=== PATIENT | female | born 1985 | race Caucasian/White ===

== ENCOUNTER 2017-04-06 11:59 | Emergency (ER) | payer BC ==
[~2017-04-06] VITALS: Ht 175.2 cm; Wt 136.1 kg
[~2017-04-06 11:59] MED LIST: BACTRIM DS 8001 TA1 PO; CIPRO500 MG PO; EAC MC; FLEXERIL10 MG PO; LANTUS SOLOS100 U/M1 SC; LEVOFLOXACIN500 MG PO; METFORMIN1000 MG PO; MOTRIN800 MG PO; Motrin,Rufen800 MG PO; OTIC CARE 1%-0.10 ML OT; ROBITUSSIN AC 110 ML PO; TORADOL10 MG PO; ULTRAM50 MG PO; ZOFRAN ODT4 MG SL; ZOFRAN4 MG PO
[2017-04-06 12:34] LABS: BILIRUBIN NEGATIVE (NEGATIVE); BLOOD 3+ (NEGATIVE); CLARITY CLEAR (CLEAR); COLOR YELLOW (YELLOW); GLUCOSE 3+ (NEGATIVE); KETONE NEGATIVE (NEGATIVE); LEUKO ESTERASE NEGATIVE (NEGATIVE); NITRITE NEGATIVE (NEGATIVE); SPECIFIC GRAVITY 1.015 (1.005-1.030); UROBILINOGEN 0.2 E.U./dl (0.2-1.0)
[2017-04-06 12:42] LABS: BASO % 0.3 % (0.0-1.0); EOS % 0.3 % (1.0-4.0); HEMATOCRIT 44.3 % (37.0-47.0); HEMOGLOBIN 15.9 g/dl (12.0-16.0); LYMPH # 2.2 10*3/uL (1.3-4.4); LYMPH % 19.1 % (27.0-41.0); MEAN CORPUSCULAR HGB 32.3 pg (27.0-31.0); MEAN CORPUSCULAR HGB CONC 35.9 g/dl (33.0-37.0); MEAN PLATELET VOLUME 11.8 fl (9.6-12.3); MONO # 0.4 10*3/uL (0.1-1.0); MONO % 3.1 % (3.0-9.0); NEUT % 76.9 % (47.0-73.0); PLATELET COUNT AUTOMATED 237 10*3/uL (130-400); RED BLOOD COUNT 4.92 10*6/uL (4.10-5.10); RED CELL DISTRI WIDTH 12.1 % (0-14.5); WHITE BLOOD COUNT 11.7 10*3/uL (4.8-10.8)
[2017-04-06 12:47] LABS: YEAST TRACE
[2017-04-06 12:59] LABS: ALBUMIN 3.5 gm/dl (3.1-4.5); ALKALINE PHOSPHATASE 66 U/L (45-117); BUN 12 mg/dl (7-24); CHLORIDE 101 mmol/L (98-107); CREATININE 0.82 mg/dL (0.55-1.02); POTASSIUM 4.2 mmol/L (3.5-5.1); SGOT/AST 73 IU/L (3-35); SGPT/ALT 95 U/L (12-78); SODIUM 133 mmol/L (136-145); TOTAL PROTEIN 7.2 gm/dL (6.4-8.2)
[2017-04-06 13:01] LABS: B-hCG (QUALITATIVE) NEGATIVE (NEGATIVE)
== END 2017-04-06 19:27 | disposition home or self-care (01) ==
LOC: ED 11:59
PROVIDERS: Physician Assistant
DX: E11.9 Type 2 diabetes mellitus without complications (principal); R10.30 Lower abdominal pain, unspecified; R19.7 Diarrhea, unspecified; Z87.891 Personal history of nicotine dependence

== ENCOUNTER 2017-06-21 09:12 | Emergency (ER) | payer BC ==
[~2017-06-21] VITALS: Wt 136.1 kg
[2017-06-21] MEDS ORDERED: CYCLOBENZAPRINE10 MG PO (10:51)
[2017-06-21] MEDS ORDERED: NAPROSYN500 MG PO (10:51)
== END 2017-06-21 11:14 | disposition home or self-care (01) ==
LOC: ED 09:12
DX: S46.911A Strain of unspecified muscle, fascia and tendon at shoulder and upper arm level, right arm, initial encounter (principal); S93.402A Sprain of unspecified ligament of left ankle, initial encounter; F17.200 Nicotine dependence, unspecified, uncomplicated; X50.1XXA Overexertion from prolonged static or awkward postures, initial encounter; Y93.89 Activity, other specified; Y92.89 Other specified places as the place of occurrence of the external cause; Y99.8 Other external cause status

== ENCOUNTER 2018-02-02 21:31 | Emergency (ER) | payer BC ==
[~2018-02-02] VITALS: Ht 175.2 cm; Wt 140.6 kg
[~2018-02-02 21:31] MED LIST changes: +CYCLOBENZAPRINE10 MG PO; +NAPROSYN500 MG PO
[2018-02-02 22:35] LABS: BILIRUBIN NEGATIVE (NEGATIVE); BLOOD 1+ (NEGATIVE); CLARITY CLEAR (CLEAR); COLOR YELLOW (YELLOW); GLUCOSE 3+ (NEGATIVE); KETONE NEGATIVE (NEGATIVE); LEUKO ESTERASE NEGATIVE (NEGATIVE); NITRITE NEGATIVE (NEGATIVE); SPECIFIC GRAVITY 1.015 (1.005-1.030); UROBILINOGEN 0.2 E.U./dl (0.2-1.0)
[2018-02-02 22:46] LABS: EPITHELIAL CELLS TNTC
[2018-02-02 22:47] LABS: BACTERIA 1+
[2018-02-02] MEDS ORDERED: AMINOPHYLLIN200 MG PO (23:19)
[2018-02-02] MEDS ORDERED: PYRIDIUM200 M1 PO (23:19)
== END 2018-02-02 23:40 | disposition home or self-care (01) ==
LOC: ED 21:31
PROVIDERS: Physician Assistant
DX: N39.0 Urinary tract infection, site not specified (principal); R31.9 Hematuria, unspecified; F17.200 Nicotine dependence, unspecified, uncomplicated

== ENCOUNTER → 2019-07-11 | Outpatient (CLI) | payer BC ==
[~2019-07-11] MED LIST changes: +AMINOPHYLLIN200 MG PO; +PYRIDIUM200 M1 PO
== END | disposition home or self-care (01) ==
LOC: CARD 16:23
DX: F90.9 Attention-deficit hyperactivity disorder, unspecified type (principal)

== ENCOUNTER → 2020-08-29 | Outpatient (CLI) | payer BC | END | disposition home or self-care (01) | LOC: US 14:32 | PROVIDERS: ATTEND Obstetrics & Gynecology | DX: N92.6 Irregular menstruation, unspecified (principal) ==

== ENCOUNTER → 2021-09-16 | Outpatient (CLI) | payer BC | END | disposition home or self-care (01) | LOC: MAMMO 08:00 | PROVIDERS: ATTEND Nurse Practitioner Family | DX: R92.8 Other abnormal and inconclusive findings on diagnostic imaging of breast (principal); N64.4 Mastodynia ==

== ENCOUNTER 2022-07-01 17:34 | Emergency (ER) | payer BC ==
[~2022-07-01] VITALS: Wt 129.3 kg
[2022-07-01 18:44] LABS: BILIRUBIN Negative (Negative); BLOOD 3+ (Negative); CLARITY Clear (Clear); COLOR Yellow (Yellow); GLUCOSE 3+ (Negative); KETONE 1+ (Negative); LEUKO ESTERASE Negative (Negative); NITRITE Negative (Negative); SPECIFIC GRAVITY >= 1.030 (1.001-1.030)
[2022-07-01 19:30] LABS: RBC 21-30 rbc/hpf (0-2)
[2022-07-01] MEDS ORDERED: HYDROCODONE-AC1 EAC1 PO (19:35)
== END 2022-07-01 19:50 | disposition home or self-care (01) ==
LOC: ED 17:34
PROVIDERS: Physician Assistant
DX: A63.0 Anogenital (venereal) warts (principal); F17.200 Nicotine dependence, unspecified, uncomplicated; F10.20 Alcohol dependence, uncomplicated

== ENCOUNTER → 2022-11-13 | Outpatient (CLI) | payer BC ==
[~2022-11-13] MED LIST changes: +HYDROCODONE-AC1 EAC1 PO
[2022-11-13 10:57] LABS: BASO # 0.1 10*3/uL (0.0-0.1); BASO % 0.8 % (0.0-1.0); EOS % 0.3 % (1.0-4.0); LYMPH # 2.1 10*3/uL (1.3-4.4); LYMPH % 27.9 % (27.0-41.0); MEAN CELL VOLUME 92.8 fl (81.0-99.0); MEAN CORPUSCULAR HGB 31.2 pg (27.0-31.0); MEAN CORPUSCULAR HGB CONC 33.6 g/dl (33.0-37.0); MEAN PLATELET VOLUME 11.7 fl (9.6-12.3); MONO # 0.3 10*3/uL (0.1-1.0); MONO % 3.9 % (3.0-9.0); NEUT # 5.1 10*3/uL (2.3-7.9); PLATELET COUNT AUTOMATED 251 10*3/uL (130-400); RED BLOOD COUNT 4.74 10*6/uL (4.10-5.10); RED CELL DISTRI WIDTH 12.6 % (0-14.5); WHITE BLOOD COUNT 7.7 10*3/uL (4.8-10.8)
[2022-11-13 11:43] LABS: ALKALINE PHOSPHATASE 59 U/L (46-116); BUN 10 mg/dl (9-23); CHLORIDE 106 mmol/L (98-107); CHOLESTEROL 156 mg/dL (<200); LDL CHOLESTEROL 88 mg/dL (9-159); POTASSIUM 3.8 mmol/L (3.4-5.1); SGPT/ALT 24 U/L (10-49); THYROID STIM HORMONE (HS) 1.069 uIU/ml (0.550-4.780); TOTAL PROTEIN 7.2 gm/dL (6.0-8.0); TRIGLYCERIDES 133 mg/dl (<150)
== END | disposition home or self-care (01) ==
LOC: LAB 10:09
PROVIDERS: ATTEND Nurse Practitioner
DX: Z13.228 Encounter for screening for other metabolic disorders (principal); Z13.29 Encounter for screening for other suspected endocrine disorder; E11.9 Type 2 diabetes mellitus without complications; K04.7 Periapical abscess without sinus

== ENCOUNTER 2023-09-27 05:45 | Emergency (ER) | payer BC ==
[~2023-09-27] VITALS: Ht 175.2 cm; Wt 135.2 kg
[2023-09-27] MEDS ORDERED: Meclizine Hydrochloride 25 MG TAB PO ONE (06:00)
[2023-09-27] MEDS ORDERED: SODIUM CHLORIDE 0.9% 1,000 ML IV ONE ×2 (06:00→07:25)
[2023-09-27 06:31] LABS: BASO # 0.1 10*3/uL (0.0-0.1); BASO % 0.6 % (0.0-1.0); EOS # 0.1 10*3/uL (0.0-0.4); EOS % 0.6 % (1.0-4.0); LYMPH # 2.3 10*3/uL (1.3-4.4); LYMPH % 28.3 % (27.0-41.0); MEAN CELL VOLUME 91.1 fl (81.0-99.0); MEAN CORPUSCULAR HGB 31.2 pg (27.0-31.0); MEAN CORPUSCULAR HGB CONC 34.2 g/dl (33.0-37.0); MONO # 0.5 10*3/uL (0.1-1.0); MONO % 5.5 % (3.0-9.0); NEUT # 5.3 10*3/uL (2.3-7.9); NEUT % 64.6 % (47.0-73.0); PLATELET COUNT AUTOMATED 298 10*3/uL (130-400); RED BLOOD COUNT 4.94 10*6/uL (4.10-5.10); RED CELL DISTRI WIDTH 12.5 % (0-14.5); WHITE BLOOD COUNT 8.1 10*3/uL (4.8-10.8)
[2023-09-27 06:52] LABS: BUN 11 mg/dl (9-23); CHLORIDE 104 mmol/L (98-107); POTASSIUM 3.9 mmol/L (3.4-5.1)
[2023-09-27 06:56] LABS: ETHYL ALCOHOL < 3.0 mg/dl (<3)
[2023-09-27] MEDS ORDERED: ANTIVERT25 M2 PO (07:00)
[2023-09-27] MEDS ORDERED: AMOX-CLAV 875-1 EACH PO (07:00)
== END 2023-09-27 10:10 | disposition home or self-care (01) ==
LOC: ED 05:45
PROVIDERS: Internal Medicine
DX: R42 Dizziness and giddiness (principal); H66.90 Otitis media, unspecified, unspecified ear; E11.9 Type 2 diabetes mellitus without complications; R11.2 Nausea with vomiting, unspecified; Z79.899 Other long term (current) drug therapy

== ENCOUNTER → 2025-07-08 | Outpatient (CLI) | payer OTHER ==
[~2025-07-08] MED LIST changes: +AMOX-CLAV 875-1 EACH PO; +ANTIVERT25 M2 PO
== END | disposition home or self-care (01) ==
LOC: US 07-04 15:00
PROVIDERS: ATTEND Nurse Practitioner
DX: E04.1 Nontoxic single thyroid nodule (principal); E07.89 Other specified disorders of thyroid